=== PATIENT | female | born 1955 | race Caucasian/White ===

== ENCOUNTER 2017-08-06 14:53 | Outpatient (CLI) | payer OTHER ==
--- NOTE | 2017-08-06 20:51 | RAD ---
LEFT HIP: Date: 08-06-17 FINDINGS: No fracture, dislocation or joint space narrowing was seen. There are no particular arthritic changes . The articular surface of the femoral head is smooth. IMPRESSION: No significant findings. POS: HOME
== END 2017-08-06 14:54 | disposition home or self-care (01) ==
LOC: BURRAD 14:53
PROVIDERS: ATTEND Family Medicine
DX: M25.552 Pain in left hip (principal)

== ENCOUNTER 2020-04-02 09:43 | Outpatient (CLI) | payer MEDICARE, OTHER ==
--- NOTE | 2020-04-02 17:47 | RAD ---
RIGHT THUMB THREE VIEWS: 04/02/20 There is some minor bony spurring in the IP joint of the thumb, particularly on the lateral side of t he joint. No fracture or dislocation was seen. 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 POS: HOME
== END 2020-04-02 09:44 | disposition home or self-care (01) ==
LOC: BURRAD 09:43
PROVIDERS: ATTEND Nurse Practitioner Family
DX: M79.644 Pain in right finger(s) (principal); M19.041 Primary osteoarthritis, right hand